=== PATIENT | male | born 1970 | race Caucasian/White ===

== ENCOUNTER 2017-02-06 05:26 | Emergency (ER) | payer MEDICARE ==
[~2017-02-06] VITALS: Ht 175.3 cm; Wt 81.6 kg
[~2017-02-06 05:26] MED LIST: BENZ1TAB2 PO; HAL5T PO; QUE25T PO
[2017-02-06 05:55] VITALS: BP 150/101
== END 2017-02-06 06:40 | disposition home or self-care (01) ==
LOC: ER 05:26
DX: F20.9 Schizophrenia, unspecified (principal); F17.210 Nicotine dependence, cigarettes, uncomplicated; Z76.0 Encounter for issue of repeat prescription

== ENCOUNTER 2018-06-29 17:22 | Emergency (ER) | payer OTHER, MEDICAID ==
[~2018-06-29] VITALS: Ht 175.3 cm; Wt 78.9 kg
[2018-06-29 17:47] VITALS: BP 146/93
== END 2018-06-29 20:20 | disposition left against medical advice (07) ==
LOC: EDBD 17:22 → ER 17:31
DX: M25.512 Pain in left shoulder (principal); Z53.21 Procedure and treatment not carried out due to patient leaving prior to being seen by health care provider
CPT/HCPCS: 73030

== ENCOUNTER 2021-03-10 17:34 | Emergency (ER) | payer BC, MEDICAID ==
[~2021-03-10] VITALS: Ht 175.3 cm; Wt 74.4 kg
[2021-03-10 19:02] LABS: Basophils # (auto) 0.1 10 ^3/uL (0-0.2); Basophils % (auto) 0.9 % (0.0-2.0); Eosinophils # (auto) 0.1 10 ^3/uL (0-0.8); Eosinophils % (auto) 1.2 % (0.0-7.0); Hematocrit 40.4 % (41.0-53.0); Hemoglobin 13.4 g/dL (13.5-17.5); Lymphocytes % (auto) 24.9 % (10.0-50.0); Mean Corpuscular Hemoglobin 30.9 pg (28.0-32.0); Mean Corpuscular Hgb Conc. 33.3 g/dL (32.0-36.0); Mean Corpuscular Volume 92.8 fL (80.0-100.0); Monocytes # (auto) 0.8 10 ^3/uL (0-1.3); Monocytes % (auto) 9.8 % (0.0-12.0); Neutrophils % (auto) 63.2 % (37.0-80.0); Nucleated Red Blood Cells % 0.4 %; Red Blood Cells 4.35 10^6/uL (4.5-5.90); Red Cell Distribution Width 13.5 % (11.8-14.3); White Blood Cell 7.8 10^3/uL (4.4-10.8)
[2021-03-10 19:08] LABS: Albumin 3.3 g/dL (3.4-5.0); Calcium 8.9 mg/dL (8.5-10.1); Potassium 3.8 mmol/L (3.5-5.1)
[2021-03-10 19:10] LABS: Alcohol, Urine < 3.0 mg/dL (0-10); Barbiturate Scree,Urine NEGATIVE (NEGATIVE); Benzodiazephine Screen, Urine NEGATIVE (NEGATIVE); Cannabinoid Screen, Urine NEGATIVE (NEGATIVE); Cocaine Screen, Urine NEGATIVE (NEGATIVE); Opiate Scree,Urine NEGATIVE (NEGATIVE); Phencyclidine Screen, Urine NEGATIVE (NEGATIVE)
[2021-03-10 19:11] LABS: BUN/Creatinine Ratio 15.8; Bilirubin, Total 0.2 mg/dL (0.2-1.0); Total Protein 7.1 g/dL (6.4-8.2)
[2021-03-10 19:14] LABS: Amphetamine Screen, Urine NEGATIVE (NEGATIVE); Urine Bacteria NONE SEEN /hpf (None Seen); Urine Blood Negative /uL (Negative); Urine Specific Gravity 1.013 (1.001-1.035); Urine WBC <1 /hpf (0 - 3)
[2021-03-11] MEDS ORDERED: HALOPERIDOL 5 MG TAB PO ONE (11:00)
[2021-03-11] MEDS ORDERED: BENZTROPINE MESY 0.5 MG TAB PO ONE (11:00)
[2021-03-11] MEDS ORDERED: QUEtiapine FUMARATE 25 MG TAB PO ONE (22:00)
[2021-03-12 19:14] VITALS: BP 119/79
== END 2021-03-12 09:31 | disposition short-term general hospital (02) ==
LOC: ER 17:34 → EDBD 17:34 → ER 03-12 09:31
DX: R45.851 Suicidal ideations (principal); F17.210 Nicotine dependence, cigarettes, uncomplicated; F20.9 Schizophrenia, unspecified; R07.89 Other chest pain; Z20.822 Contact with and (suspected) exposure to COVID-19
CPT/HCPCS: 36415; 80053; 80307; 81001; 85025; 93005; 99285; C9803; U0003

== ENCOUNTER 2021-07-25 14:16 | Emergency (ER) | payer BC, MEDICAID ==
[~2021-07-25] VITALS: Ht 170.2 cm; Wt 68.0 kg
[2021-07-25 15:14] LABS: Alcohol, Urine < 3.0 mg/dL (0-10); Amphetamine Screen, Urine POSITIVE (NEGATIVE); Barbiturate Scree,Urine NEGATIVE (NEGATIVE); Benzodiazephine Screen, Urine NEGATIVE (NEGATIVE); Cannabinoid Screen, Urine POSITIVE (NEGATIVE); Cocaine Screen, Urine NEGATIVE (NEGATIVE); Opiate Scree,Urine NEGATIVE (NEGATIVE); Phencyclidine Screen, Urine NEGATIVE (NEGATIVE)
[2021-07-25 15:53] LABS: Basophils # (auto) 0.1 10 ^3/uL (0-0.2); Basophils % (auto) 1.3 % (0.0-2.0); Eosinophils # (auto) 0.1 10 ^3/uL (0-0.8); Eosinophils % (auto) 1.1 % (0.0-7.0); Hematocrit 40.9 % (41.0-53.0); Hemoglobin 14.1 g/dL (13.5-17.5); Lymphocytes # (auto) 1.7 10 ^3/uL (0.4-5.4); Lymphocytes % (auto) 16.9 % (10.0-50.0); Mean Corpuscular Hemoglobin 32.3 pg (28.0-32.0); Mean Corpuscular Hgb Conc. 34.5 g/dL (32.0-36.0); Mean Corpuscular Volume 93.5 fL (80.0-100.0); Monocytes # (auto) 0.8 10 ^3/uL (0-1.3); Monocytes % (auto) 8.2 % (0.0-12.0); Neutrophils # (auto) 7.1 10 ^3/uL (1.6-8.6); Neutrophils % (auto) 72.5 % (37.0-80.0); Red Blood Cells 4.38 10^6/uL (4.5-5.90); Red Cell Distribution Width 13.9 % (11.8-14.3); White Blood Cell 9.8 10^3/uL (4.4-10.8)
[2021-07-25 16:09] LABS: Albumin 3.6 g/dL (3.4-5.0); Calcium 8.9 mg/dL (8.5-10.1); Potassium 3.7 mmol/L (3.5-5.1)
[2021-07-25 16:11] LABS: Salicylate 3.1 mg/dL (2.8-20.0)
[2021-07-25 16:14] LABS: BUN/Creatinine Ratio 10.3; Bilirubin, Total 0.6 mg/dL (0.2-1.0); Total Protein 7.8 g/dL (6.4-8.2)
[2021-07-25 16:23] LABS: Acetaminophen < 2.0 ug/mL (10-30)
[2021-07-26 13:45] VITALS: BP 115/75
== END 2021-07-26 15:32 | disposition left against medical advice (07) ==
LOC: ER 14:16 → EDBD 14:16 → ER 07-26 15:24
DX: R45.851 Suicidal ideations (principal); F20.9 Schizophrenia, unspecified; F17.210 Nicotine dependence, cigarettes, uncomplicated; Z20.822 Contact with and (suspected) exposure to COVID-19
CPT/HCPCS: 36415; 71045; 80053; 80307; 80320; 80329; 85025

== ENCOUNTER 2021-09-11 07:21 | Emergency (ER) | payer BC, MEDICAID ==
[~2021-09-11] VITALS: Ht 175.3 cm; Wt 69.1 kg
[2021-09-11 07:34] VITALS: BP 131/95
[2021-09-11] MEDS ORDERED: OLANZapine 5 MG TAB PO ONE (08:45)
== END 2021-09-11 09:04 | disposition home or self-care (01) ==
LOC: ER 07:21
DX: F20.9 Schizophrenia, unspecified (principal); Z76.0 Encounter for issue of repeat prescription; F17.210 Nicotine dependence, cigarettes, uncomplicated

== ENCOUNTER 2021-09-11 20:05 | Emergency (ER) | payer BC, MEDICAID ==
[~2021-09-11] VITALS: Ht 175.3 cm; Wt 75.0 kg
[2021-09-11 22:50] LABS: Basophils # (auto) 0.1 10 ^3/uL (0-0.2); Basophils % (auto) 1.1 % (0.0-2.0); Eosinophils # (auto) 0.2 10 ^3/uL (0-0.8); Eosinophils % (auto) 3.5 % (0.0-7.0); Hematocrit 38.8 % (41.0-53.0); Hemoglobin 13.1 g/dL (13.5-17.5); Lymphocytes # (auto) 2.3 10 ^3/uL (0.4-5.4); Lymphocytes % (auto) 33.2 % (10.0-50.0); Mean Corpuscular Hemoglobin 31.4 pg (28.0-32.0); Mean Corpuscular Hgb Conc. 33.7 g/dL (32.0-36.0); Mean Corpuscular Volume 93.3 fL (80.0-100.0); Monocytes # (auto) 0.8 10 ^3/uL (0-1.3); Monocytes % (auto) 11.1 % (0.0-12.0); Neutrophils # (auto) 3.5 10 ^3/uL (1.6-8.6); Neutrophils % (auto) 51.1 % (37.0-80.0); Nucleated Red Blood Cells % 0.1 %; Red Blood Cells 4.16 10^6/uL (4.5-5.90); Red Cell Distribution Width 14.2 % (11.8-14.3); White Blood Cell 6.9 10^3/uL (4.4-10.8)
[2021-09-11 23:13] LABS: Salicylate < 1.7 mg/dL (2.8-20.0)
[2021-09-11 23:14] LABS: Acetaminophen < 2.0 ug/mL (10-30)
[2021-09-11 23:15] LABS: Albumin 3.3 g/dL (3.4-5.0); BUN/Creatinine Ratio 12.3; Calcium 8.9 mg/dL (8.5-10.1); Potassium 3.9 mmol/L (3.5-5.1)
[2021-09-11 23:18] LABS: Bilirubin, Total 0.2 mg/dL (0.2-1.0); Total Protein 7.1 g/dL (6.4-8.2)
[2021-09-12 06:16] LABS: Urine Bacteria NONE SEEN /hpf (None Seen); Urine Blood Negative /uL (Negative); Urine Hyaline Cast FEW /lpf (0 - 2); Urine Mucus FEW (None Seen); Urine Specific Gravity 1.018 (1.001-1.035); Urine WBC <1 /hpf (0 - 3)
[2021-09-12 06:48] LABS: Alcohol, Urine < 3.0 mg/dL (0-10); Amphetamine Screen, Urine NEGATIVE (NEGATIVE); Barbiturate Scree,Urine NEGATIVE (NEGATIVE); Benzodiazephine Screen, Urine NEGATIVE (NEGATIVE); Cannabinoid Screen, Urine NEGATIVE (NEGATIVE); Cocaine Screen, Urine NEGATIVE (NEGATIVE); Opiate Scree,Urine NEGATIVE (NEGATIVE); Phencyclidine Screen, Urine NEGATIVE (NEGATIVE)
[2021-09-12] MEDS: FLUoxetine HCL 20 MG CAP PO SCH (17:07)
[2021-09-12] MEDS: OLANZapine 5 MG TAB PO SCH (22:51)
[2021-09-13] MEDS: FLUoxetine HCL 20 MG CAP PO SCH (10:00)
[2021-09-13] MEDS: OLANZapine 5 MG TAB PO SCH (22:14)
[2021-09-14] MEDS: FLUoxetine HCL 20 MG CAP PO SCH (10:11)
[2021-09-14] MEDS: OLANZapine 5 MG TAB PO SCH (21:45)
[2021-09-15 08:30] VITALS: BP 127/86
[2021-09-15] MEDS: FLUoxetine HCL 20 MG CAP PO SCH (11:02)
== END 2021-09-15 12:51 | disposition home or self-care (01) ==
LOC: EDBD 20:05 → ER 20:05
DX: R45.851 Suicidal ideations (principal); F20.9 Schizophrenia, unspecified; F17.210 Nicotine dependence, cigarettes, uncomplicated; Z20.822 Contact with and (suspected) exposure to COVID-19
CPT/HCPCS: 36415; 71045; 80053; 80307; 80329; 81001; 84443; 84484; 85025

== ENCOUNTER 2021-09-20 08:11 | Emergency (ER) | payer BC, MEDICAID ==
[~2021-09-20] VITALS: Ht 175.3 cm; Wt 75.0 kg
[2021-09-20 08:25] VITALS: BP 130/85
[2021-09-20] MEDS ORDERED: IBUP800T27 PO (09:38)
[2021-09-20] MEDS ORDERED: CLIN300C8 PO (09:38)
== END 2021-09-20 09:54 | disposition home or self-care (01) ==
LOC: ER 08:11
DX: K02.9 Dental caries, unspecified (principal); K05.00 Acute gingivitis, plaque induced; F17.210 Nicotine dependence, cigarettes, uncomplicated; Z79.1 Long term (current) use of non-steroidal anti-inflammatories (NSAID); Z79.2 Long term (current) use of antibiotics; Z79.899 Other long term (current) drug therapy

== ENCOUNTER 2021-10-10 21:17 | Emergency (ER) | payer BC, MEDICAID ==
[~2021-10-10] VITALS: Ht 175.3 cm; Wt 74.5 kg
[~2021-10-10 21:17] MED LIST changes: +CLIN300C8 PO; +IBUP800T27 PO
[2021-10-10 22:45] VITALS: BP 137/84
== END 2021-10-11 08:20 | disposition left against medical advice (07) ==
LOC: ER 21:17
DX: F41.9 Anxiety disorder, unspecified (principal); Z76.0 Encounter for issue of repeat prescription; Z53.21 Procedure and treatment not carried out due to patient leaving prior to being seen by health care provider